=== PATIENT | female | born 1945 | race Caucasian/White ===

== ENCOUNTER 2017-05-17 08:00 | Day surgery (SDC) | payer MEDICARE ==
[2017-05-15 11:54] LABS: BASOPHILS % (AUTO) 0.5 % (0-1); EOSINOPHILS # (AUTO) 0.4 X10'3 (0-0.9); EOSINOPHILS % (AUTO) 6.2 % (0-6); LYMPHOCYTES # (AUTO) 1.5 X10'3 (1.1-4.8); LYMPHOCYTES % (AUTO) 21.8 % (21-51); MEAN CORPUSCULAR HEMOGLOBIN 31.1 PG (27.0-31.0); MEAN CORPUSCULAR HGB CONC 33.4 % (33.0-36.5); MEAN CORPUSCULAR VOLUME 93.1 FL (78-98); MEAN PLATELET VOLUME 7.9 FL (7.4-10.4); MONOCYTES # (AUTO) 0.5 X10'3 (0-0.9); MONOCYTES % (AUTO) 7.8 % (2-12); NEUTROPHILS # (AUTO) 4.4 X10'3 (1.8-7.7); NEUTROPHILS % (AUTO) 63.7 % (42-75); PRE OP HEMATOCRIT 45.1 % (35.0-45.0); PRE OP HEMOGLOBIN 15.1 g/dL (12.0-16.0); PRE OP PLATELET COUNT 263 X10'3 (140-440); RED BLOOD COUNT 4.85 X10'6 (4.20-5.60); RED CELL DISTRIBUTION WIDTH 14.1 % (11.5-14.5)
[2017-05-15 12:17] LABS: ALBUMIN 3.8 G/DL (3.4-5.0); ALKALINE PHOSPHATASE 88 IU/L (46-116); BLOOD UREA NITROGEN 11 MG/DL (7-18); CALCIUM 9.6 MG/DL (8.5-10.1); CHLORIDE 102 MMOL/L (99-107); CREATININE 0.92 MG/DL (0.40-0.90); PRE OP ALT 27 U/L (30-65); PRE OP ANION GAP 6 (8-16); PRE OP AST 25 U/L (10-37); PRE OP BILIRUB, TOTAL 0.5 MG/DL (0.0-1.0); PRE OP GLUCOSE 99 MG/DL (70-104); PRE OP POTASSIUM 3.8 MMOL/L (3.4-5.1); PRE OP SODIUM 141 MMOL/L (135-145); TOTAL PROTEIN 7.5 G/DL (6.4-8.2); eGFR 60 ML/MIN
[2017-05-17] VITALS (7 sets, daily range): BP systolic 136–169; BP diastolic 77–92
[~2017-05-17] VITALS: Ht 172.7 cm; Wt 82.4 kg
[~2017-05-17 08:00] MED LIST: ALBU8HFA PO; ARFO15VI3 NEB; ATR0.5NEB IH; BUDE0.5A11 IH; DOCUMENT DATE & TIME OF BETA-BLOCKER PO ONE; LISI10TA4 PO; METO25TA6 PO; SULF500T9 PO; albuterol 2.5 MG/3 ML nebule NEB PRN; ceFOXitin 2 GM ADDvantage bag 100 ML IV ONE; famotidine 20mg tablet PO ONE; ringers solution, lacted 1,000 ML IV SCH
[2017-05-17] MEDS ORDERED: epiNEPHrine 1 mg/ml inj ONE (11:42)
[2017-05-17] MEDS ORDERED: BUPIVAcaine/PF 2.5 mg/ml (0.25%) 30ml vial ONE (11:42)
[2017-05-17] MEDS ORDERED: ceFAZolin 1000mg inj ONE (11:42)
[2017-05-17] MEDS ORDERED: fentaNYL/PF 50MCG/1 ML 2ML syringe ONE ×2 (12:28→13:19)
[2017-05-17] MEDS ORDERED: propofol inj 20 ML IV ONE (12:36)
[2017-05-17] MEDS ORDERED: LIDOcaine 2% (20mg/ml) 5ml vial ONE (12:36)
[2017-05-17] MEDS ORDERED: sevoflurane 250ml liquid IH ONE (12:53)
[2017-05-17] MEDS ORDERED: rocuronium 10mg/ml inj IV ONE (13:00)
[2017-05-17] MEDS ORDERED: ringers solution, lacted 1,000 ML IV SCH (13:48)
[2017-05-17] MEDS ORDERED: HYDROmorphone 1 mg/ml syringe IV PRN ×2 (13:50)
[2017-05-17] MEDS ORDERED: ondansetron/PF 4mg/2ml inj IV PRN (13:50)
[2017-05-17] MEDS ORDERED: glycopyrrolate 0.2mg/ml inj ONE (13:57)
[2017-05-17] MEDS ORDERED: ondansetron/PF 4mg/2ml inj ONE (13:57)
[2017-05-17] MEDS ORDERED: dexamethasone sod phosphate 4mg/ml inj. ONE (13:57)
[2017-05-17] MEDS ORDERED: meperidine/PF 25mg/ml syringe ONE (14:08)
== END 2017-05-17 14:35 | disposition home or self-care (01) ==
LOC: PAS 08:00
PROVIDERS: ATTEND Surgery
DX: K81.1 Chronic cholecystitis (principal); J44.9 Chronic obstructive pulmonary disease, unspecified; K50.90 Crohn's disease, unspecified, without complications; I10 Essential (primary) hypertension; F32.9 Major depressive disorder, single episode, unspecified; F10.21 Alcohol dependence, in remission; Z98.49 Cataract extraction status, unspecified eye; Z88.6 Allergy status to analgesic agent; Z79.899 Other long term (current) drug therapy; Z90.710 Acquired absence of both cervix and uterus; Z95.810 Presence of automatic (implantable) cardiac defibrillator; Z79.82 Long term (current) use of aspirin
CPT/HCPCS: 36415; 47562; 71046; 80053; 85025; 93005; J0171; J0690; J0694; J1100; J2001; J2175; J2405; J2704; J3010; J3490; J7120; 88304; A7000

== ENCOUNTER 2017-06-28 17:24 | Inpatient (IN) | payer MEDICARE, OTHER ==
[~2017-06-28] VITALS: Ht 175.3 cm; Wt 85.0 kg
[~2017-06-28 17:24] MED LIST changes: -DOCUMENT DATE & TIME OF BETA-BLOCKER PO ONE; -albuterol 2.5 MG/3 ML nebule NEB PRN; -ceFOXitin 2 GM ADDvantage bag 100 ML IV ONE; -famotidine 20mg tablet PO ONE; -ringers solution, lacted 1,000 ML IV SCH
[2017-06-28] MEDS ORDERED: acetaminophen 325mg tablet PO STA (17:31)
[2017-06-28] MEDS ORDERED: normal saline 1000ML IV soln IV ONE (17:35)
[2017-06-28] MEDS ORDERED: ipratropium/albuterol 3ml nebule NEB ONE (17:35)
[2017-06-28] MEDS ORDERED: diltiazem 5mg/ml 5ml inj. IV ONE (17:50)
[2017-06-28 17:58] LABS: BASOPHILS # (AUTO) 0.1 X10'3 (0-0.2); BASOPHILS % (AUTO) 0.3 % (0-1); EOSINOPHILS % (AUTO) 0 % (0-6); HEMATOCRIT 44.5 % (35.0-45.0); HEMOGLOBIN 15.2 g/dl (12.0-16.0); LYMPHOCYTES # (AUTO) 0.8 X10'3 (1.1-4.8); LYMPHOCYTES % (AUTO) 3.5 % (21-51); MEAN CORPUSCULAR HEMOGLOBIN 31.3 PG (27.0-31.0); MEAN CORPUSCULAR HGB CONC 34.2 % (33.0-36.5); MEAN CORPUSCULAR VOLUME 91.5 FL (78-98); MEAN PLATELET VOLUME 7.6 FL (7.4-10.4); MONOCYTES % (AUTO) 4.5 % (2-12); NEUTROPHILS % (AUTO) 91.7 % (42-75); PLATELET COUNT 283 X10'3 (140-440); RED BLOOD COUNT 4.86 X10'6 (4.20-5.60); RED CELL DISTRIBUTION WIDTH 14.3 % (11.5-14.5); WHITE BLOOD COUNT 21.8 X10'3 (4.5-11.0)
[2017-06-28 18:11] LABS: ABG BASE EXCESS 4.6 mmol/L (-2.0-3.0); ABG HCO3 27.8 mmol/L (22.0-26.0); ABG OXYGEN SATURATION 89.3 % (95-98); ABG PCO2 (T) 37.6 mmHg (32.0-45.0); ABG PH (T) 7.488 (7.350-7.450); ABG PO2 (T) 49.6 mmHg (83-108); ALLEN'S TEST Positive; FCOHb 1.1 % (0.5-1.5); FMetHb 0.2 % (0.3-1.12); FO2Hb 88.1 % (94-100); PATIENT TEMPERATURE 37.3; TOTAL HEMOGLOBIN 15.8 G/dl (12.0-16.0)
[2017-06-28 18:15] LABS: ALANINE AMINOTRANSFERASE 21 U/L (12-78); ALBUMIN 3.7 G/DL (3.4-5.0); ALBUMIN/GLOBULIN RATIO 0.9 (1.1-1.5); ALKALINE PHOSPHATASE 92 IU/L (46-116); ANION GAP 8 (8-16); ASPARTATE AMINO TRANSFERASE 14 U/L (10-37); BILIRUBIN,TOTAL 0.8 MG/DL (0.1-1.0); BLOOD UREA NITROGEN 14 MG/DL (7-18); BUN/CREATININE RATIO 12.8 (6.6-38.0); CALCIUM 9.4 MG/DL (8.5-10.1); CHLORIDE 98 MMOL/L (99-107); CREATININE 1.09 MG/DL (0.40-0.90); GLUCOSE 140 MG/DL (70-104); POTASSIUM 3.3 MMOL/L (3.5-5.1); SODIUM 136 MMOL/L (135-145); TOTAL CARBON DIOXIDE 30.2 MMOL/L (24-32); TOTAL PROTEIN 7.7 G/DL (6.4-8.2); eGFR 49 ML/MIN
[2017-06-28] MEDS ORDERED: CefTRIAXone 2gm/NS 100ml IVPB 100 ML IV ONE (18:30)
[2017-06-28] MEDS ORDERED: azithromycin/NS 500mg/250ml 250 ML IV ONE (18:30)
[2017-06-28 21:40] LABS: CLARITY,URINE Clear (Clear); COLOR,URINE Yellow (Yellow); GLUCOSE, URINE Negative (Neg); KETONES,URINE Negative (Neg); LEUKOCYTE ESTERASE ,URINE Trace (Neg); NITRITES, URINE Negative (Neg); OCCULT BLOOD,URINE Negative (Neg); PROTEIN,URINE Negative (Neg); UROBILINOGEN,URINE 0.2 E.U/dL (0.2-1.0)
[2017-06-28 22:03] LABS: UA COLLECTION TYPE CLN CATCH MIDSTREAM
[2017-06-28 22:08] LABS: BACTERIA,URINE FEW /HPF (Neg); MUCUS STRANDS FEW /LPF (Neg); SQUAMOUS EPITHELIAL CELL,UR FEW /LPF (FEW)
[2017-06-28 22:09] LABS: RBC,URINE NONE SEEN /HPF (0-2)
[2017-06-29] MEDS ORDERED: ipratropium/albuterol 3ml nebule ONE (01:33)
[2017-06-29] MEDS ORDERED: ipratropium/albuterol 3ml nebule NEB ONE (01:40)
[2017-06-29] MEDS ORDERED: mag hydrox/Alum hydrox/simeth 30ml oral suspension PO PRN (02:55)
[2017-06-29] MEDS ORDERED: magnesium hydroxide 30ml (MOM) UD suspension PO PRN (02:55)
[2017-06-29] MEDS ORDERED: ondansetron/PF 4mg/2ml inj IV PRN (02:55)
[2017-06-29] MEDS ORDERED: acetaminophen 325mg tablet PO PRN (02:55)
[2017-06-29] MEDS ORDERED: albuterol 2.5 MG/3 ML nebule NEB PRN (03:20)
[2017-06-29] MEDS: methylPREDNISolone sod succ 125mg/2ml vial IV SCH ×3 (04:06→23:44)
[2017-06-29] MEDS ORDERED: azithromycin 250mg tablet PO ONE (07:00)
[2017-06-29] MEDS: ARFORMOTEROL TARTRATE IH SCH ×2 (08:00→20:00)
[2017-06-29] MEDS: lisinopril 10 MG tablet PO SCH (09:01)
[2017-06-29] MEDS: metoprolol tartrate 25mg tablet PO SCH (09:01)
[2017-06-29] MEDS: cefTRIAXone 1g/NS 100ml IVPB 100 ML IV SCH (09:01)
[2017-06-29] MEDS: heparin, porcine 5000 units/ml vial SQ SCH ×2 (09:03→21:38)
[2017-06-29 09:51] LABS: ABG HCO3 29.3 mmol/L (22.0-26.0); ABG OXYGEN SATURATION 95.5 % (95-98); ABG PCO2 (T) 46.7 mmHg (32.0-45.0); ABG PH (T) 7.416 (7.350-7.450); ABG PO2 (T) 72.6 mmHg (83-108); ALLEN'S TEST Positive; FCOHb 1.2 % (0.5-1.5); FLOW 2 L/min; FMetHb 0.2 % (0.3-1.12); FO2Hb 94.2 % (94-100); RESPIRATORY RATE (OBSERVED) 24 b/min; TOTAL HEMOGLOBIN 14.4 G/dl (12.0-16.0)
[2017-06-29] MEDS: budesonide 0.5mg/2ml UD nebule IH SCH ×2 (09:52→20:29)
[2017-06-29] MEDS: ipratropium 0.5 MG/2.5ML nebule IH SCH ×3 (09:53→20:29)
[2017-06-29 17:00] VITALS: BP 177/90
[2017-06-29] MEDS ORDERED: magnesium 2GM in 50ml NS 50 ML IV PRN (17:35)
[2017-06-29] MEDS ORDERED: potassium Cl 20 mEq SR tablet PO PRN (17:35)
[2017-06-29] MEDS ORDERED: potassium Cl 40MEQ/NS 500ml 500 ML IV PRN ×2 (17:35)
[2017-06-29] MEDS ORDERED: magnesium 4gm in 100ml NS 100 ML IV PRN (17:35)
[2017-06-29] MEDS ORDERED: magnesium Cl slow-release 64mg tablet PO PRN (17:35)
[2017-06-29] MEDS: lactobacillus rhamnosus 10,000 MMU CELLS/CAPSULE PO SCH (17:40)
[2017-06-29] MEDS: potassium Cl 20 mEq SR tablet PO PRN ×2 (17:40→22:35)
[2017-06-29 20:00] VITALS: BP 145/79
[2017-06-30] VITALS: BP 123/68
[2017-06-30 05:23] LABS: BASOPHILS % (AUTO) 0 % (0-1); EOSINOPHILS # (AUTO) 0.3 X10'3 (0-0.9); EOSINOPHILS % (AUTO) 2.2 % (0-6); HEMATOCRIT 37.7 % (35.0-45.0); LYMPHOCYTES # (AUTO) 0.7 X10'3 (1.1-4.8); LYMPHOCYTES % (AUTO) 5.2 % (21-51); MEAN CORPUSCULAR HEMOGLOBIN 31.6 PG (27.0-31.0); MEAN CORPUSCULAR HGB CONC 34.4 % (33.0-36.5); MEAN CORPUSCULAR VOLUME 91.9 FL (78-98); MEAN PLATELET VOLUME 7.9 FL (7.4-10.4); MONOCYTES # (AUTO) 0.2 X10'3 (0-0.9); MONOCYTES % (AUTO) 1.2 % (2-12); NEUTROPHILS # (AUTO) 12.6 X10'3 (1.8-7.7); NEUTROPHILS % (AUTO) 91.4 % (42-75); PLATELET COUNT 228 X10'3 (140-440); RED CELL DISTRIBUTION WIDTH 14.4 % (11.5-14.5); WHITE BLOOD COUNT 13.8 X10'3 (4.5-11.0)
[2017-06-30 05:58] LABS: ALANINE AMINOTRANSFERASE 21 U/L (12-78); ALBUMIN/GLOBULIN RATIO 0.8 (1.1-1.5); ALKALINE PHOSPHATASE 74 IU/L (46-116); ANION GAP 5 (8-16); ASPARTATE AMINO TRANSFERASE 15 U/L (10-37); BILIRUBIN,TOTAL 0.3 MG/DL (0.1-1.0); BLOOD UREA NITROGEN 13 MG/DL (7-18); BUN/CREATININE RATIO 13.7 (6.6-38.0); CALCIUM 8.7 MG/DL (8.5-10.1); CHLORIDE 103 MMOL/L (99-107); CREATININE 0.95 MG/DL (0.40-0.90); GLUCOSE 134 MG/DL (70-104); MAGNESIUM 1.8 MG/DL (1.5-2.4); POTASSIUM 4.3 MMOL/L (3.5-5.1); SODIUM 140 MMOL/L (135-145); TOTAL CARBON DIOXIDE 32.1 MMOL/L (24-32); TOTAL PROTEIN 6.6 G/DL (6.4-8.2); eGFR 58 ML/MIN
[2017-06-30 08:00] VITALS: BP 156/86
[2017-06-30] MEDS: cefTRIAXone 1g/NS 100ml IVPB 100 ML IV SCH (08:00)
[2017-06-30] MEDS: ARFORMOTEROL TARTRATE IH SCH (08:00)
[2017-06-30] MEDS: methylPREDNISolone sod succ 125mg/2ml vial IV SCH (08:00)
[2017-06-30] MEDS: metoprolol tartrate 25mg tablet PO SCH (08:44)
[2017-06-30] MEDS: heparin, porcine 5000 units/ml vial SQ SCH (08:44)
[2017-06-30] MEDS: lactobacillus rhamnosus 10,000 MMU CELLS/CAPSULE PO SCH (08:45)
[2017-06-30] MEDS: lisinopril 10 MG tablet PO SCH (08:45)
[2017-06-30] MEDS: budesonide 0.5mg/2ml UD nebule IH SCH (08:45)
[2017-06-30] MEDS: ipratropium 0.5 MG/2.5ML nebule IH SCH ×2 (08:45→14:38)
[2017-06-30] MEDS ORDERED: PRED10TA23 PO (09:54)
[2017-06-30] MEDS ORDERED: AZIT500T PO (09:55)
[2017-06-30 11:52] VITALS: BP 171/90
== END 2017-06-30 15:34 | disposition home or self-care (01) | DRG 189 ==
LOC: ER 17:24 → ED HOLD 06-29 02:53 → SUR 3N 06-29 15:30
PROVIDERS: ADMIT Internal Medicine; ATTEND Internal Medicine
DX: J96.01 Acute respiratory failure with hypoxia (principal); J44.1 Chronic obstructive pulmonary disease with (acute) exacerbation; Z99.81 Dependence on supplemental oxygen; E87.6 Hypokalemia; I10 Essential (primary) hypertension; K58.9 Irritable bowel syndrome, unspecified; F17.210 Nicotine dependence, cigarettes, uncomplicated; Z95.0 Presence of cardiac pacemaker; Z88.5 Allergy status to narcotic agent; Z79.899 Other long term (current) drug therapy
CPT/HCPCS: 36415; 36600; 71045; 80053; 81001; 82803; 83605; 83735; 85018; 85025; 87040; 87070; 87088; 87502; 87503; 93005; 94640; 94760; 96365; 96368; 97116; 99285; J0456; J0696; J1644; J2930; J3490; J7030; J7626

== ENCOUNTER 2018-03-13 10:02 | Inpatient (IN) | payer MEDICARE, OTHER ==
[~2018-03-13] VITALS: Ht 175.3 cm; Wt 82.3 kg
[~2018-03-13 10:02] MED LIST changes: -SULF500T9 PO
[2018-03-13] MEDS ORDERED: normal saline 1000ML IV soln IV ONE (10:20)
[2018-03-13] MEDS ORDERED: albuterol 2.5 MG/3 ML nebule CONTNEB PRN (10:20)
[2018-03-13] MEDS ORDERED: methylPREDNISolone sod succ 125mg/2ml vial IV ONE (10:20)
[2018-03-13] MEDS ORDERED: levoFLOXACIN-Levaquin 750MG/D5 150 ML IV ONE (10:20)
[2018-03-13 10:56] LABS: BASOPHILS % (AUTO) 0 % (0-1); EOSINOPHILS # (AUTO) 0.2 X10'3 (0-0.9); EOSINOPHILS % (AUTO) 1.5 % (0-6); HEMATOCRIT 43.1 % (35.0-45.0); HEMOGLOBIN 14.2 g/dl (12.0-16.0); LYMPHOCYTES # (AUTO) 0.7 X10'3 (1.1-4.8); LYMPHOCYTES % (AUTO) 4.8 % (21-51); MEAN CORPUSCULAR HEMOGLOBIN 31.2 PG (27.0-31.0); MEAN CORPUSCULAR HGB CONC 33.1 % (33.0-36.5); MEAN CORPUSCULAR VOLUME 94.3 FL (78-98); MEAN PLATELET VOLUME 7.8 FL (7.4-10.4); MONOCYTES # (AUTO) 0.2 X10'3 (0-0.9); MONOCYTES % (AUTO) 1.7 % (2-12); NEUTROPHILS # (AUTO) 12.7 X10'3 (1.8-7.7); PLATELET COUNT 253 X10'3 (140-440); RED BLOOD COUNT 4.56 X10'6 (4.20-5.60); RED CELL DISTRIBUTION WIDTH 14.7 % (11.5-14.5); WHITE BLOOD COUNT 13.8 X10'3 (4.5-11.0)
[2018-03-13 11:10] LABS: ALANINE AMINOTRANSFERASE 45 U/L (12-78); ALBUMIN 3.8 G/DL (3.4-5.0); ALBUMIN/GLOBULIN RATIO 1.2 (1.1-1.5); ALKALINE PHOSPHATASE 82 IU/L (46-116); ANION GAP 11 (8-16); ASPARTATE AMINO TRANSFERASE 35 U/L (10-37); BILIRUBIN,TOTAL 0.4 MG/DL (0.1-1.0); BLOOD UREA NITROGEN 8 MG/DL (7-18); BUN/CREATININE RATIO 8.2 (6.6-38.0); CALCIUM 8.9 MG/DL (8.5-10.1); CHLORIDE 103 MMOL/L (99-107); CREATININE 0.97 MG/DL (0.40-0.90); GLUCOSE 114 MG/DL (70-104); MAGNESIUM 1.4 MG/DL (1.5-2.4); SODIUM 143 MMOL/L (135-145); TOTAL CARBON DIOXIDE 29.4 MMOL/L (24-32); eGFR 56 ML/MIN
[2018-03-13 11:15] LABS: PARTIAL THROMBOPLASTIN TIME 22 SECONDS (22-32); PROTHROMBIN TIME 9.9 SECONDS (9.0-12.0)
[2018-03-13 11:16] LABS: POTASSIUM 2.9 MMOL/L (3.5-5.1)
[2018-03-13] MEDS ORDERED: potassium Cl 20 mEq SR tablet PO ONE (11:25)
[2018-03-13] MEDS ORDERED: albuterol 2.5 MG/3 ML nebule NEB PRN (13:35)
[2018-03-13] MEDS ORDERED: potassium Cl 40MEQ/NS 500ml 500 ML IV PRN ×2 (13:35)
[2018-03-13] MEDS ORDERED: magnesium 1gm/100ml D5W IVPB 100 ML IV PRN (13:35)
[2018-03-13] MEDS ORDERED: mag hydrox/Alum hydrox/simeth 30ml oral suspension PO PRN (13:35)
[2018-03-13] MEDS ORDERED: magnesium hydroxide 30ml (MOM) UD suspension PO PRN (13:35)
[2018-03-13] MEDS ORDERED: magnesium Cl slow-release 64mg tablet PO PRN (13:35)
[2018-03-13] MEDS ORDERED: magnesium 4gm in 100ml NS 100 ML IV PRN (13:35)
[2018-03-13] MEDS ORDERED: ondansetron/PF 4mg/2ml inj IV PRN (13:35)
[2018-03-13] MEDS ORDERED: potassium Cl 20 mEq SR tablet PO PRN ×2 (13:35)
[2018-03-13] MEDS ORDERED: acetaminophen 325mg tablet PO PRN (13:35)
[2018-03-13] MEDS ORDERED: PRED20TA PO (14:16)
[2018-03-13 15:00] VITALS: BP 150/83
[2018-03-13] MEDS: ipratropium/albuterol 3ml nebule NEB SCH ×3 (15:49→23:27)
[2018-03-13] MEDS ORDERED: ibuprofen tablet 400 MG TABLET PO PRN (16:45)
[2018-03-13] MEDS ORDERED: aminophylline 250mg/10ml inj. IV PRN (18:50)
[2018-03-13] MEDS ORDERED: aspirin 81mg tab.chew PO ONE (18:50)
[2018-03-13] MEDS ORDERED: metoprolol tartrate 1mg/ml inj IV PRN (18:50)
[2018-03-13] MEDS ORDERED: nitroGLYCERIN 0.4mg SUBLingual tab SL PRN (18:50)
[2018-03-13] MEDS ORDERED: regadenoson 0.4mg/5ml syringe IV PRN (18:50)
[2018-03-13 19:00] VITALS: BP 144/79
[2018-03-13] MEDS: metoprolol tartrate 12.5mg (1/2 tablet) PO SCH (19:37)
[2018-03-13] MEDS: methylPREDNISolone sod succ/PF 40mg inj. IV SCH (19:38)
[2018-03-13] MEDS: BUDESONIDE 0.25 MG/2 ML AMPUL.NEB IH SCH (19:47)
[2018-03-13 23:00] VITALS: BP 139/79
[2018-03-14] VITALS (18 sets, daily range): BP systolic 107–149; BP diastolic 51–77
[2018-03-14] MEDS: ipratropium/albuterol 3ml nebule NEB SCH ×6 (03:36→23:02)
[2018-03-14 05:05] LABS: BASOPHILS % (AUTO) 0 % (0-1); EOSINOPHILS % (AUTO) 0 % (0-6); HEMATOCRIT 36.1 % (35.0-45.0); HEMOGLOBIN 12.3 g/dl (12.0-16.0); LYMPHOCYTES # (AUTO) 0.7 X10'3 (1.1-4.8); LYMPHOCYTES % (AUTO) 7.7 % (21-51); MEAN CORPUSCULAR HEMOGLOBIN 31.8 PG (27.0-31.0); MEAN CORPUSCULAR HGB CONC 34.1 % (33.0-36.5); MEAN CORPUSCULAR VOLUME 93.2 FL (78-98); MEAN PLATELET VOLUME 7.6 FL (7.4-10.4); MONOCYTES # (AUTO) 0.4 X10'3 (0-0.9); MONOCYTES % (AUTO) 4.6 % (2-12); NEUTROPHILS # (AUTO) 7.5 X10'3 (1.8-7.7); NEUTROPHILS % (AUTO) 87.7 % (42-75); PLATELET COUNT 224 X10'3 (140-440); RED BLOOD COUNT 3.87 X10'6 (4.20-5.60); RED CELL DISTRIBUTION WIDTH 14.6 % (11.5-14.5); WHITE BLOOD COUNT 8.6 X10'3 (4.5-11.0)
[2018-03-14 05:21] LABS: ALBUMIN 3.1 G/DL (3.4-5.0); ANION GAP 7 (8-16); BLOOD UREA NITROGEN 9 MG/DL (7-18); BUN/CREATININE RATIO 10.7 (6.6-38.0); CALCIUM 9.2 MG/DL (8.5-10.1); CHLORIDE 106 MMOL/L (99-107); CREATININE 0.84 MG/DL (0.40-0.90); GLUCOSE 119 MG/DL (70-104); MAGNESIUM 1.6 MG/DL (1.5-2.4); POTASSIUM 3.9 MMOL/L (3.5-5.1); SODIUM 142 MMOL/L (135-145); TOTAL CARBON DIOXIDE 28.8 MMOL/L (24-32); TROPONIN I 0.35 NG/ML (0.0-0.05); eGFR 67 ML/MIN
[2018-03-14] MEDS: BUDESONIDE 0.25 MG/2 ML AMPUL.NEB IH SCH ×2 (07:05→19:07)
[2018-03-14] MEDS: K and/or MAG REPLACEMENT MC SCH (08:00)
[2018-03-14] MEDS ORDERED: metoprolol tartrate 25mg tablet PO SCH (08:00)
[2018-03-14] MEDS: enoxaparin 40mg/0.4ml syringe SQ SCH (09:09)
[2018-03-14] MEDS: aspirin 81mg tablet.DR PO SCH (09:10)
[2018-03-14] MEDS: lisinopril 10 MG tablet PO SCH (09:16)
[2018-03-14] MEDS: levoFLOXACIN-Levaquin 500mg/D5 100 ML IV SCH (09:16)
[2018-03-14] MEDS: methylPREDNISolone sod succ/PF 40mg inj. IV SCH ×2 (09:16→19:42)
[2018-03-14] MEDS: metoprolol tartrate 12.5mg (1/2 tablet) PO SCH ×2 (10:49→19:45)
[2018-03-14] MEDS ORDERED: regadenoson 0.4mg/5ml syringe IV ONE (12:33)
[2018-03-14] MEDS ORDERED: aminophylline inj. 10 ML IV ONE (12:33)
[2018-03-14] MEDS ORDERED: furosemide 40mg/4ml inj IV ONE (14:35)
[2018-03-14 16:50] LABS: TROPONIN I 0.31 NG/ML (0.0-0.05)
[2018-03-14] MEDS: lactobacillus rhamnosus 10,000 MMU CELLS/CAPSULE PO SCH (19:43)
[2018-03-14] MEDS ORDERED: etomidate 2mg/ml inj. ONE (20:00)
[2018-03-14] MEDS ORDERED: non-formulary drug (Arformoterol Tartrate (Brovana) 1 VIAL) NEB SCH (20:00)
[2018-03-15] VITALS (19 sets, daily range): BP systolic 73–240; BP diastolic 54–146
[2018-03-15] MEDS: ipratropium/albuterol 3ml nebule NEB SCH ×6 (02:46→23:05)
[2018-03-15] MEDS ORDERED: ibuprofen 200mg tablet PO PRN (03:09)
[2018-03-15 05:47] LABS: BASOPHILS % (AUTO) 0 % (0-1); EOSINOPHILS # (AUTO) 0.1 X10'3 (0-0.9); EOSINOPHILS % (AUTO) 1.2 % (0-6); HEMATOCRIT 39.2 % (35.0-45.0); HEMOGLOBIN 13.2 g/dl (12.0-16.0); LYMPHOCYTES # (AUTO) 0.6 X10'3 (1.1-4.8); LYMPHOCYTES % (AUTO) 7.6 % (21-51); MEAN CORPUSCULAR HEMOGLOBIN 31.6 PG (27.0-31.0); MEAN CORPUSCULAR HGB CONC 33.7 % (33.0-36.5); MEAN CORPUSCULAR VOLUME 93.8 FL (78-98); MEAN PLATELET VOLUME 7.7 FL (7.4-10.4); MONOCYTES # (AUTO) 0.4 X10'3 (0-0.9); MONOCYTES % (AUTO) 4.6 % (2-12); NEUTROPHILS # (AUTO) 7.1 X10'3 (1.8-7.7); NEUTROPHILS % (AUTO) 86.6 % (42-75); PLATELET COUNT 245 X10'3 (140-440); RED BLOOD COUNT 4.18 X10'6 (4.20-5.60); RED CELL DISTRIBUTION WIDTH 14.5 % (11.5-14.5); WHITE BLOOD COUNT 8.2 X10'3 (4.5-11.0)
[2018-03-15 05:50] LABS: ALBUMIN 3.4 G/DL (3.4-5.0); ANION GAP 7 (8-16); BLOOD UREA NITROGEN 15 MG/DL (7-18); CHLORIDE 102 MMOL/L (99-107); CREATININE 0.94 MG/DL (0.40-0.90); GLUCOSE 115 MG/DL (70-104); MAGNESIUM 1.6 MG/DL (1.5-2.4); POTASSIUM 3.6 MMOL/L (3.5-5.1); SODIUM 142 MMOL/L (135-145); TOTAL CARBON DIOXIDE 33.3 MMOL/L (24-32); eGFR 59 ML/MIN
[2018-03-15] MEDS: BUDESONIDE 0.25 MG/2 ML AMPUL.NEB IH SCH ×2 (07:28→19:22)
[2018-03-15] MEDS: K and/or MAG REPLACEMENT MC SCH (08:00)
[2018-03-15] MEDS: levoFLOXACIN-Levaquin 500mg/D5 100 ML IV SCH (08:07)
[2018-03-15] MEDS: furosemide 40mg/4ml inj IV SCH (08:07)
[2018-03-15] MEDS: methylPREDNISolone sod succ/PF 40mg inj. IV SCH ×2 (08:08→20:54)
[2018-03-15] MEDS: aspirin 81mg tablet.DR PO SCH (08:09)
[2018-03-15] MEDS: metoprolol tartrate 12.5mg (1/2 tablet) PO SCH ×2 (08:09→22:21)
[2018-03-15] MEDS: lactobacillus rhamnosus 10,000 MMU CELLS/CAPSULE PO SCH ×2 (08:09→20:54)
[2018-03-15] MEDS: lisinopril 10 MG tablet PO SCH (08:10)
[2018-03-15] MEDS: enoxaparin 40mg/0.4ml syringe SQ SCH (08:11)
[2018-03-15 10:51] LABS: ABG HCO3 38.7 mmol/L (22.0-26.0); ABG OXYGEN SATURATION 91.8 % (95-98); ABG PCO2 (T) 124.2 mmHg (32.0-45.0); ABG PH (T) 7.112 (7.350-7.450); ABG PO2 (T) 81.2 mmHg (83-108); FCOHb 0.3 % (0.5-1.5); FLOW 50 L/min; FMetHb 0.3 % (0.3-1.12); FO2Hb 91.2 % (94-100); TOTAL HEMOGLOBIN 15.9 G/dl (12.0-16.0)
[2018-03-15] MEDS ORDERED: midazolam 2 mg/2 ml injection IV PRN (11:00)
[2018-03-15] MEDS ORDERED: morphine 4 MG/ML inj SYRINge IV PRN ×2 (11:00→12:35)
[2018-03-15] MEDS ORDERED: MIDAZolam 5mg/ml 2ml vial ONE (11:03)
[2018-03-15 11:06] LABS: PROTHROMBIN TIME 10.2 SECONDS (9.0-12.0)
[2018-03-15 11:08] LABS: BASOPHILS % (AUTO) 0.2 % (0-1); EOSINOPHILS # (AUTO) 0.2 X10'3 (0-0.9); EOSINOPHILS % (AUTO) 1.3 % (0-6); HEMOGLOBIN 15.3 g/dl (12.0-16.0); LYMPHOCYTES # (AUTO) 3.2 X10'3 (1.1-4.8); LYMPHOCYTES % (AUTO) 18.4 % (21-51); MEAN CORPUSCULAR HEMOGLOBIN 31.6 PG (27.0-31.0); MEAN CORPUSCULAR HGB CONC 33.3 % (33.0-36.5); MEAN CORPUSCULAR VOLUME 94.9 FL (78-98); MEAN PLATELET VOLUME 8.1 FL (7.4-10.4); MONOCYTES # (AUTO) 1.3 X10'3 (0-0.9); MONOCYTES % (AUTO) 7.2 % (2-12); NEUTROPHILS # (AUTO) 12.7 X10'3 (1.8-7.7); NEUTROPHILS % (AUTO) 72.9 % (42-75); PLATELET COUNT 361 X10'3 (140-440); RED BLOOD COUNT 4.84 X10'6 (4.20-5.60); RED CELL DISTRIBUTION WIDTH 14.9 % (11.5-14.5); WHITE BLOOD COUNT 17.4 X10'3 (4.5-11.0)
[2018-03-15 11:11] LABS: ALANINE AMINOTRANSFERASE 94 U/L (12-78); ALBUMIN 4.2 G/DL (3.4-5.0); ALBUMIN/GLOBULIN RATIO 1.2 (1.1-1.5); ALKALINE PHOSPHATASE 81 IU/L (46-116); ANION GAP 9 (8-16); ASPARTATE AMINO TRANSFERASE 94 U/L (10-37); BILIRUBIN,TOTAL 0.5 MG/DL (0.1-1.0); BLOOD UREA NITROGEN 16 MG/DL (7-18); BUN/CREATININE RATIO 13.3 (6.6-38.0); CALCIUM 9.6 MG/DL (8.5-10.1); CHLORIDE 99 MMOL/L (99-107); GLUCOSE 197 MG/DL (70-104); SODIUM 143 MMOL/L (135-145); TOTAL CARBON DIOXIDE 35.3 MMOL/L (24-32); TOTAL PROTEIN 7.6 G/DL (6.4-8.2); TROPONIN I 0.23 NG/ML (0.0-0.05); eGFR 44 ML/MIN
[2018-03-15] MEDS: midazolam 100mg in NS 100ml 100 ML IV PRN (11:17)
[2018-03-15] MEDS: FENTANYL-0.9 % NACL/PF 100 ML IV PRN ×2 (11:18→17:47)
[2018-03-15 11:45] LABS: OXYGEN SATURATION (MIXED VEN) 87.5 % (60-80); PO2 MIXED VENOUS (TEMP COR) 60.2 mmHg (35-46)
[2018-03-15] MEDS ORDERED: propofol 1000mg/100ml bottle 100 ML IV PRN (11:47)
[2018-03-15] MEDS ORDERED: NORepinephrine 8mg/ 250ml NS 250 ML IV PRN ×2 (11:50→12:01)
[2018-03-15] MEDS ORDERED: NORepinephrine 8mg/ 250ml NS 250 ML IV ONE (11:51)
[2018-03-15 11:55] LABS: ABG BASE EXCESS 1.5 mmol/L (-2.0-3.0); ABG HCO3 30.2 mmol/L (22.0-26.0); ABG OXYGEN SATURATION 98.7 % (95-98); ABG PCO2 (T) 66.6 mmHg (32.0-45.0); ABG PH (T) 7.275 (7.350-7.450); ABG PO2 (T) 160.6 mmHg (83-108); ALLEN'S TEST Positive; FCOHb 0.3 % (0.5-1.5); FMetHb 0.2 % (0.3-1.12); FO2Hb 98.2 % (94-100); MINUTE VOLUME 6 L/min; PEEP 5 cm H2O; RESPIRATORY RATE 16 b/min; RESPIRATORY RATE (OBSERVED) 20 b/min; TIDAL VOLUME 400 mL; TOTAL HEMOGLOBIN 14.6 G/dl (12.0-16.0)
[2018-03-15 11:55] LABS: BASOPHILS % (AUTO) 0 % (0-1); EOSINOPHILS # (AUTO) 0.1 X10'3 (0-0.9); HEMOGLOBIN 13.9 g/dl (12.0-16.0); LYMPHOCYTES # (AUTO) 0.4 X10'3 (1.1-4.8); LYMPHOCYTES % (AUTO) 3.7 % (21-51); MEAN CORPUSCULAR HEMOGLOBIN 31.1 PG (27.0-31.0); MEAN CORPUSCULAR VOLUME 94.4 FL (78-98); MEAN PLATELET VOLUME 7.7 FL (7.4-10.4); MONOCYTES # (AUTO) 0.3 X10'3 (0-0.9); MONOCYTES % (AUTO) 3.2 % (2-12); NEUTROPHILS % (AUTO) 92.1 % (42-75); PLATELET COUNT 308 X10'3 (140-440); RED BLOOD COUNT 4.45 X10'6 (4.20-5.60); RED CELL DISTRIBUTION WIDTH 14.8 % (11.5-14.5); WHITE BLOOD COUNT 10.9 X10'3 (4.5-11.0)
[2018-03-15 12:10] LABS: ALANINE AMINOTRANSFERASE 101 U/L (12-78); ALBUMIN 3.6 G/DL (3.4-5.0); ALBUMIN/GLOBULIN RATIO 1.2 (1.1-1.5); ALKALINE PHOSPHATASE 74 IU/L (46-116); ANION GAP 11 (8-16); ASPARTATE AMINO TRANSFERASE 113 U/L (10-37); BILIRUBIN,TOTAL 0.5 MG/DL (0.1-1.0); BLOOD UREA NITROGEN 18 MG/DL (7-18); BUN/CREATININE RATIO 14.9 (6.6-38.0); CALCIUM 8.8 MG/DL (8.5-10.1); CHLORIDE 100 MMOL/L (99-107); CREATININE 1.21 MG/DL (0.40-0.90); GLUCOSE 133 MG/DL (70-104); MAGNESIUM 1.6 MG/DL (1.5-2.4); PHOSPHORUS 6.3 MG/DL (2.3-4.5); POTASSIUM 3.4 MMOL/L (3.5-5.1); SODIUM 145 MMOL/L (135-145); TOTAL CARBON DIOXIDE 33.6 MMOL/L (24-32); TOTAL PROTEIN 6.6 G/DL (6.4-8.2); eGFR 44 ML/MIN
[2018-03-15] MEDS ORDERED: albuterol 2.5 MG/3 ML nebule NEB PRN ×2 (12:25→12:35)
[2018-03-15] MEDS ORDERED: ondansetron/PF 4mg/2ml inj IV PRN (12:35)
[2018-03-15] MEDS ORDERED: acetaminophen 325mg tablet PO PRN ×2 (12:35)
[2018-03-15] MEDS ORDERED: morphine 2 MG/ML inj. syringe IV PRN (12:35)
[2018-03-15] MEDS ORDERED: potassium Cl 20 mEq SR tablet PO PRN ×2 (12:35)
[2018-03-15] MEDS ORDERED: metoclopramide 5 mg/ml inj IV PRN (12:35)
[2018-03-15] MEDS: K, MAG and/or Phos replacement - Verify level? MC SCH (12:35)
[2018-03-15] MEDS ORDERED: magnesium hydroxide 30ml (MOM) UD suspension PO PRN (12:35)
[2018-03-15 22:08] LABS: CLARITY,URINE CLEAR (Clear); COLOR,URINE YELLOW (Yellow); GLUCOSE, URINE NEGATIVE (Neg); KETONES,URINE NEGATIVE (Neg); LEUKOCYTE ESTERASE ,URINE NEGATIVE (Neg); NITRITES, URINE NEGATIVE (Neg); OCCULT BLOOD,URINE TRACE-INTACT (Neg); PROTEIN,URINE NEGATIVE (Neg); UROBILINOGEN,URINE 0.2 E.U/dL (0.2-1.0)
[2018-03-15 22:10] LABS: UA COLLECTION TYPE FOLEY CATH
[2018-03-15 22:17] LABS: BACTERIA,URINE NONE SEEN /HPF (Neg); RBC,URINE NONE SEEN /HPF (0-2); SQUAMOUS EPITHELIAL CELL,UR FEW /LPF (FEW); WBC,URINE NONE SEEN /HPF (0-4)
[2018-03-15 22:18] LABS: TRANSITIONAL EPI CELLS,URINE FEW /HPF
[2018-03-15 22:36] LABS: D-DIMER 1.14 MG/L FEU (0-0.50)
[2018-03-16] VITALS (25 sets, daily range): BP systolic 96–150; BP diastolic 59–88
[2018-03-16 02:18] LABS: BASOPHILS % (AUTO) 0.1 % (0-1); EOSINOPHILS % (AUTO) 0 % (0-6); HEMATOCRIT 38.1 % (35.0-45.0); HEMOGLOBIN 13.2 g/dl (12.0-16.0); LYMPHOCYTES # (AUTO) 0.3 X10'3 (1.1-4.8); MEAN CORPUSCULAR HEMOGLOBIN 32.2 PG (27.0-31.0); MEAN CORPUSCULAR HGB CONC 34.6 % (33.0-36.5); MEAN CORPUSCULAR VOLUME 93.2 FL (78-98); MEAN PLATELET VOLUME 7.9 FL (7.4-10.4); MONOCYTES # (AUTO) 0.3 X10'3 (0-0.9); MONOCYTES % (AUTO) 3.5 % (2-12); NEUTROPHILS % (AUTO) 93.4 % (42-75); PLATELET COUNT 218 X10'3 (140-440); RED BLOOD COUNT 4.09 X10'6 (4.20-5.60); WHITE BLOOD COUNT 9.6 X10'3 (4.5-11.0)
[2018-03-16 02:28] LABS: ALANINE AMINOTRANSFERASE 91 U/L (12-78); ALBUMIN 3.4 G/DL (3.4-5.0); ALBUMIN/GLOBULIN RATIO 1.4 (1.1-1.5); ALKALINE PHOSPHATASE 61 IU/L (46-116); ANION GAP 5 (8-16); ASPARTATE AMINO TRANSFERASE 54 U/L (10-37); BILIRUBIN,TOTAL 0.8 MG/DL (0.1-1.0); BLOOD UREA NITROGEN 18 MG/DL (7-18); BUN/CREATININE RATIO 18.4 (6.6-38.0); CALCIUM 8.5 MG/DL (8.5-10.1); CHLORIDE 103 MMOL/L (99-107); CREATININE 0.98 MG/DL (0.40-0.90); GLUCOSE 116 MG/DL (70-104); MAGNESIUM 1.6 MG/DL (1.5-2.4); PHOSPHORUS 3.4 MG/DL (2.3-4.5); POTASSIUM 3.6 MMOL/L (3.5-5.1); SODIUM 141 MMOL/L (135-145); TOTAL CARBON DIOXIDE 33.3 MMOL/L (24-32); TOTAL PROTEIN 5.9 G/DL (6.4-8.2); eGFR 56 ML/MIN
[2018-03-16 02:34] LABS: INR 1.1 INR; PARTIAL THROMBOPLASTIN TIME 22 SECONDS (22-32); PROTHROMBIN TIME 10.8 SECONDS (9.0-12.0)
[2018-03-16] MEDS: ipratropium/albuterol 3ml nebule NEB SCH ×6 (03:08→22:52)
[2018-03-16 03:21] LABS: ABG BASE EXCESS 5.7 mmol/L (-2.0-3.0); ABG HCO3 29.2 mmol/L (22.0-26.0); ABG OXYGEN SATURATION 96.2 % (95-98); ABG PCO2 (T) 38.1 mmHg (32.0-45.0); ABG PH (T) 7.502 (7.350-7.450); ABG PO2 (T) 75.5 mmHg (83-108); ALLEN'S TEST Positive; FCOHb 0.3 % (0.5-1.5); FMetHb 0.2 % (0.3-1.12); FO2Hb 95.7 % (94-100); MINUTE VOLUME 8 L/min; PATIENT TEMPERATURE 36.5; PEEP 5 cm H2O; RESPIRATORY RATE 20 b/min; RESPIRATORY RATE (OBSERVED) 20 b/min; TIDAL VOLUME 400 mL
[2018-03-16] MEDS: midazolam 100mg in NS 100ml 100 ML IV PRN (03:58)
[2018-03-16] MEDS: FENTANYL-0.9 % NACL/PF 100 ML IV PRN (03:59)
[2018-03-16] MEDS: BUDESONIDE 0.25 MG/2 ML AMPUL.NEB IH SCH ×2 (07:20→18:54)
[2018-03-16] MEDS: methylPREDNISolone sod succ/PF 40mg inj. IV SCH ×2 (07:49→19:57)
[2018-03-16] MEDS: furosemide 40mg/4ml inj IV SCH (07:49)
[2018-03-16] MEDS: pantoprazole 40 MG vial IV SCH (07:50)
[2018-03-16] MEDS: metoprolol tartrate 12.5mg (1/2 tablet) PO SCH ×2 (07:59→19:55)
[2018-03-16] MEDS: levoFLOXACIN-Levaquin 500mg/D5 100 ML IV SCH (07:59)
[2018-03-16] MEDS: lactobacillus rhamnosus 10,000 MMU CELLS/CAPSULE PO SCH ×2 (07:59→19:56)
[2018-03-16] MEDS: aspirin 81mg tablet.DR PO SCH (08:00)
[2018-03-16] MEDS: lisinopril 10 MG tablet PO SCH (08:00)
[2018-03-16] MEDS: K, MAG and/or Phos replacement - Verify level? MC SCH (08:00)
[2018-03-16] MEDS: enoxaparin 40mg/0.4ml syringe SUBCUT SCH (08:01)
[2018-03-16] MEDS ORDERED: metoclopramide 5 mg/ml inj IV PRN (13:00)
[2018-03-16] MEDS ORDERED: metoprolol tartrate 1mg/ml inj IV PRN (13:00)
[2018-03-16] MEDS ORDERED: nitroGLYCERIN 0.4mg SUBLingual tab SL PRN (13:00)
[2018-03-16] MEDS ORDERED: aminophylline 250mg/10ml inj. IV PRN (13:00)
[2018-03-16] MEDS ORDERED: regadenoson 0.4mg/5ml syringe IV ONE (13:00)
[2018-03-16 13:20] LABS: ABG BASE EXCESS 7.6 mmol/L (-2.0-3.0); ABG HCO3 32.6 mmol/L (22.0-26.0); ABG OXYGEN SATURATION 95.3 % (95-98); ABG PCO2 (T) 46.7 mmHg (32.0-45.0); ABG PH (T) 7.462 (7.350-7.450); ABG PO2 (T) 71.7 mmHg (83-108); ALLEN'S TEST Positive; FCOHb 0.3 % (0.5-1.5); FLOW 3 L/min; FMetHb 0.3 % (0.3-1.12); FO2Hb 94.7 % (94-100); TOTAL HEMOGLOBIN 15.1 G/dl (12.0-16.0)
[2018-03-16] MEDS ORDERED: mineral oil/petrolatum ophthal oint EACHEYE SCH (14:00)
[2018-03-16] MEDS: metoclopramide 5 mg/ml inj IV SCH (20:01)
[2018-03-16] MEDS ORDERED: diphenhydrAMINE 25mg capsule PO PRN (20:30)
[2018-03-17] VITALS (24 sets, daily range): BP systolic 104–152; BP diastolic 57–87
[2018-03-17 00:36] LABS: BASOPHILS % (AUTO) 0.2 % (0-1); EOSINOPHILS # (AUTO) 0.1 X10'3 (0-0.9); EOSINOPHILS % (AUTO) 0.9 % (0-6); HEMATOCRIT 40.4 % (35.0-45.0); HEMOGLOBIN 13.4 g/dl (12.0-16.0); LYMPHOCYTES # (AUTO) 0.4 X10'3 (1.1-4.8); LYMPHOCYTES % (AUTO) 3.6 % (21-51); MEAN CORPUSCULAR HEMOGLOBIN 31.5 PG (27.0-31.0); MEAN CORPUSCULAR HGB CONC 33.2 % (33.0-36.5); MEAN CORPUSCULAR VOLUME 94.8 FL (78-98); MEAN PLATELET VOLUME 7.6 FL (7.4-10.4); MONOCYTES # (AUTO) 0.4 X10'3 (0-0.9); MONOCYTES % (AUTO) 3.5 % (2-12); NEUTROPHILS # (AUTO) 9.7 X10'3 (1.8-7.7); NEUTROPHILS % (AUTO) 91.8 % (42-75); PLATELET COUNT 240 X10'3 (140-440); RED BLOOD COUNT 4.26 X10'6 (4.20-5.60); RED CELL DISTRIBUTION WIDTH 15.6 % (11.5-14.5); WHITE BLOOD COUNT 10.5 X10'3 (4.5-11.0)
[2018-03-17 00:50] LABS: ALANINE AMINOTRANSFERASE 105 U/L (12-78); ALBUMIN 3.4 G/DL (3.4-5.0); ALBUMIN/GLOBULIN RATIO 1.2 (1.1-1.5); ALKALINE PHOSPHATASE 74 IU/L (46-116); ANION GAP 6 (8-16); ASPARTATE AMINO TRANSFERASE 59 U/L (10-37); BILIRUBIN,TOTAL 0.7 MG/DL (0.1-1.0); BLOOD UREA NITROGEN 27 MG/DL (7-18); BUN/CREATININE RATIO 18.8 (6.6-38.0); CALCIUM 8.8 MG/DL (8.5-10.1); CHLORIDE 100 MMOL/L (99-107); CREATININE 1.44 MG/DL (0.40-0.90); GLUCOSE 145 MG/DL (70-104); MAGNESIUM 1.7 MG/DL (1.5-2.4); PARTIAL THROMBOPLASTIN TIME 23 SECONDS (22-32); PHOSPHORUS 4.5 MG/DL (2.3-4.5); POTASSIUM 3.5 MMOL/L (3.5-5.1); PROTHROMBIN TIME 10.5 SECONDS (9.0-12.0); SODIUM 140 MMOL/L (135-145); TOTAL CARBON DIOXIDE 33.8 MMOL/L (24-32); TOTAL PROTEIN 6.3 G/DL (6.4-8.2); eGFR 36 ML/MIN
[2018-03-17] MEDS: ipratropium/albuterol 3ml nebule NEB SCH ×6 (02:43→23:49)
[2018-03-17] MEDS: metoclopramide 5 mg/ml inj IV SCH ×4 (03:31→20:03)
[2018-03-17] MEDS: BUDESONIDE 0.25 MG/2 ML AMPUL.NEB IH SCH ×2 (07:08→19:44)
[2018-03-17] MEDS: lactobacillus rhamnosus 10,000 MMU CELLS/CAPSULE PO SCH ×2 (07:31→20:00)
[2018-03-17] MEDS: metoprolol tartrate 12.5mg (1/2 tablet) PO SCH ×2 (07:31→20:01)
[2018-03-17] MEDS: levoFLOXACIN-Levaquin 500mg/D5 100 ML IV SCH (07:31)
[2018-03-17] MEDS: furosemide 40mg/4ml inj IV SCH (07:32)
[2018-03-17] MEDS: enoxaparin 40mg/0.4ml syringe SUBCUT SCH (07:32)
[2018-03-17] MEDS: pantoprazole 40 MG vial IV SCH (07:32)
[2018-03-17] MEDS: methylPREDNISolone sod succ/PF 40mg inj. IV SCH ×2 (07:32→20:04)
[2018-03-17] MEDS: K, MAG and/or Phos replacement - Verify level? MC SCH (07:33)
[2018-03-17] MEDS: lisinopril 10 MG tablet PO SCH (08:23)
[2018-03-17] MEDS: aspirin 81mg tablet.DR PO SCH (08:23)
[2018-03-17] MEDS: sodium chloride 0.45% 1,000 ML IV SCH (09:17)
[2018-03-17] MEDS ORDERED: polyethylene glycol 3350 17gm powd pack PO PRN (12:35)
[2018-03-18] VITALS (18 sets, daily range): BP systolic 87–142; BP diastolic 49–82
[2018-03-18] MEDS: sodium chloride 0.45% 1,000 ML IV SCH (00:59)
[2018-03-18] MEDS: metoclopramide 5 mg/ml inj IV SCH ×4 (02:43→21:06)
[2018-03-18 03:07] LABS: BASOPHILS % (AUTO) 0 % (0-1); EOSINOPHILS # (AUTO) 0.1 X10'3 (0-0.9); EOSINOPHILS % (AUTO) 1.1 % (0-6); HEMATOCRIT 39.3 % (35.0-45.0); LYMPHOCYTES # (AUTO) 0.4 X10'3 (1.1-4.8); LYMPHOCYTES % (AUTO) 4.5 % (21-51); MEAN CORPUSCULAR HEMOGLOBIN 31.6 PG (27.0-31.0); MEAN CORPUSCULAR HGB CONC 33.2 % (33.0-36.5); MEAN CORPUSCULAR VOLUME 95.2 FL (78-98); MEAN PLATELET VOLUME 7.9 FL (7.4-10.4); MONOCYTES # (AUTO) 0.3 X10'3 (0-0.9); MONOCYTES % (AUTO) 3.4 % (2-12); NEUTROPHILS # (AUTO) 8.5 X10'3 (1.8-7.7); PLATELET COUNT 226 X10'3 (140-440); RED BLOOD COUNT 4.13 X10'6 (4.20-5.60); RED CELL DISTRIBUTION WIDTH 14.9 % (11.5-14.5); WHITE BLOOD COUNT 9.3 X10'3 (4.5-11.0)
[2018-03-18 03:15] LABS: ALANINE AMINOTRANSFERASE 85 U/L (12-78); ALBUMIN 3.2 G/DL (3.4-5.0); ALBUMIN/GLOBULIN RATIO 1.2 (1.1-1.5); ALKALINE PHOSPHATASE 68 IU/L (46-116); ANION GAP 5 (8-16); ASPARTATE AMINO TRANSFERASE 35 U/L (10-37); BILIRUBIN,TOTAL 0.5 MG/DL (0.1-1.0); BLOOD UREA NITROGEN 22 MG/DL (7-18); BUN/CREATININE RATIO 19.5 (6.6-38.0); CALCIUM 8.5 MG/DL (8.5-10.1); CHLORIDE 100 MMOL/L (99-107); CREATININE 1.13 MG/DL (0.40-0.90); GLUCOSE 143 MG/DL (70-104); MAGNESIUM 1.8 MG/DL (1.5-2.4); PHOSPHORUS 3.5 MG/DL (2.3-4.5); POTASSIUM 3.6 MMOL/L (3.5-5.1); PROTHROMBIN TIME 10.5 SECONDS (9.0-12.0); SODIUM 138 MMOL/L (135-145); TOTAL CARBON DIOXIDE 32.9 MMOL/L (24-32); TOTAL PROTEIN 5.9 G/DL (6.4-8.2); eGFR 47 ML/MIN
[2018-03-18 03:16] LABS: PARTIAL THROMBOPLASTIN TIME 23 SECONDS (22-32)
[2018-03-18] MEDS: ipratropium/albuterol 3ml nebule NEB SCH ×6 (03:34→23:49)
[2018-03-18] MEDS: methylPREDNISolone sod succ/PF 40mg inj. IV SCH ×2 (07:46→21:06)
[2018-03-18] MEDS: furosemide 40mg/4ml inj IV SCH (07:46)
[2018-03-18] MEDS: aspirin 81mg tablet.DR PO SCH (07:47)
[2018-03-18] MEDS: metoprolol tartrate 12.5mg (1/2 tablet) PO SCH ×2 (07:47→21:07)
[2018-03-18] MEDS: lactobacillus rhamnosus 10,000 MMU CELLS/CAPSULE PO SCH ×2 (07:48→21:06)
[2018-03-18] MEDS: pantoprazole 40mg Tablet.DR PO SCH (07:48)
[2018-03-18] MEDS: lisinopril 10 MG tablet PO SCH (07:48)
[2018-03-18] MEDS: enoxaparin 40mg/0.4ml syringe SUBCUT SCH (07:50)
[2018-03-18] MEDS: K, MAG and/or Phos replacement - Verify level? MC SCH (08:00)
[2018-03-18] MEDS: BUDESONIDE 0.25 MG/2 ML AMPUL.NEB IH SCH ×2 (08:15→19:49)
[2018-03-18] MEDS ORDERED: benzocaine/menthol oral lozeng 1 EACH BOX MM PRN (11:00)
[2018-03-19] MEDS: metoclopramide 5 mg/ml inj IV SCH ×3 (02:47→14:00)
[2018-03-19 03:00] VITALS: BP 123/60
[2018-03-19] MEDS: ipratropium/albuterol 3ml nebule NEB SCH ×3 (03:17→11:57)
[2018-03-19 05:31] LABS: PROTHROMBIN TIME 10.4 SECONDS (9.0-12.0)
[2018-03-19 05:32] LABS: PARTIAL THROMBOPLASTIN TIME 22 SECONDS (22-32)
[2018-03-19 05:39] LABS: ALANINE AMINOTRANSFERASE 74 U/L (12-78); ALBUMIN 3.2 G/DL (3.4-5.0); ALBUMIN/GLOBULIN RATIO 1.2 (1.1-1.5); ALKALINE PHOSPHATASE 74 IU/L (46-116); ANION GAP 7 (8-16); ASPARTATE AMINO TRANSFERASE 24 U/L (10-37); BILIRUBIN,TOTAL 0.5 MG/DL (0.1-1.0); BLOOD UREA NITROGEN 20 MG/DL (7-18); BUN/CREATININE RATIO 19.6 (6.6-38.0); CALCIUM 8.7 MG/DL (8.5-10.1); CHLORIDE 99 MMOL/L (99-107); CREATININE 1.02 MG/DL (0.40-0.90); GLUCOSE 129 MG/DL (70-104); PHOSPHORUS 3.7 MG/DL (2.3-4.5); POTASSIUM 3.8 MMOL/L (3.5-5.1); SODIUM 139 MMOL/L (135-145); TOTAL CARBON DIOXIDE 32.8 MMOL/L (24-32); TOTAL PROTEIN 5.9 G/DL (6.4-8.2); eGFR 53 ML/MIN
[2018-03-19 06:00] VITALS: BP 136/71
[2018-03-19] MEDS: metoprolol tartrate 12.5mg (1/2 tablet) PO SCH (07:26)
[2018-03-19] MEDS: lactobacillus rhamnosus 10,000 MMU CELLS/CAPSULE PO SCH (07:26)
[2018-03-19] MEDS: aspirin 81mg tablet.DR PO SCH (07:26)
[2018-03-19] MEDS: pantoprazole 40mg Tablet.DR PO SCH (07:26)
[2018-03-19] MEDS: methylPREDNISolone sod succ/PF 40mg inj. IV SCH (07:26)
[2018-03-19] MEDS: lisinopril 10 MG tablet PO SCH (07:26)
[2018-03-19] MEDS: enoxaparin 40mg/0.4ml syringe SUBCUT SCH (07:27)
[2018-03-19] MEDS: furosemide 40mg/4ml inj IV SCH (07:27)
[2018-03-19] MEDS ORDERED: levoFLOXACIN-Levaquin 500mg/D5 100 ML IV SCH (08:00)
[2018-03-19] MEDS: BUDESONIDE 0.25 MG/2 ML AMPUL.NEB IH SCH (09:01)
[2018-03-19 11:00] VITALS: BP 126/71
[2018-03-19] MEDS ORDERED: levoFLOXACIN 500mg tablet PO SCH (11:00)
[2018-03-19] MEDS ORDERED: PRED20TA PO (12:23)
[2018-03-19] MEDS ORDERED: METO-292 PO (12:23)
[2018-03-19] MEDS ORDERED: PANT40TA4 PO (12:23)
[2018-03-20] MEDS ORDERED: methylnaltrexone br 12mg/0.6ml inj***SubQ only SQ SCH (08:00)
[2018-03-22 10:47] LABS: ALLEN'S TEST Positive
== END 2018-03-19 15:07 | disposition home or self-care (01) | DRG 208 ==
LOC: ER 10:03 → ED HOLD 13:35 → PCU 3S 15:29 → SUR 3N 03-15 03:05 → ICU 2S 03-15 10:51 → PCU 3S 03-18 16:40 → UNDODISIN 03-19 13:30
PROVIDERS: ADMIT Hospitalist; ATTEND Internal Medicine Critical Care Medicine
PROC: 4A02XM4 Measurement of Cardiac Total Activity, External Approach (ICD-10-PCS; principal; 2018-03-14)
PROC: 3E033HZ Introduction of Radioactive Substance into Peripheral Vein, Percutaneous Approach (ICD-10-PCS; 2018-03-14)
PROC: 5A1945Z Respiratory Ventilation, 24-96 Consecutive Hours (ICD-10-PCS; 2018-03-15)
PROC: 0BH17EZ Insertion of Endotracheal Airway into Trachea, Via Natural or Artificial Opening (ICD-10-PCS; 2018-03-15)
PROC: 02HV33Z Insertion of Infusion Device into Superior Vena Cava, Percutaneous Approach (ICD-10-PCS; 2018-03-15)
PROC: 03HY32Z Insertion of Monitoring Device into Upper Artery, Percutaneous Approach (ICD-10-PCS; 2018-03-15)
DX: J96.21 Acute and chronic respiratory failure with hypoxia (principal); J44.1 Chronic obstructive pulmonary disease with (acute) exacerbation; E87.2 Acidosis; N17.9 Acute kidney failure, unspecified; I50.22 Chronic systolic (congestive) heart failure; J96.22 Acute and chronic respiratory failure with hypercapnia; I11.0 Hypertensive heart disease with heart failure; R74.8 Abnormal levels of other serum enzymes; I49.5 Sick sinus syndrome; Z95.810 Presence of automatic (implantable) cardiac defibrillator; Z88.6 Allergy status to analgesic agent; Z79.899 Other long term (current) drug therapy; Z87.01 Personal history of pneumonia (recurrent)
CPT/HCPCS: 36415; 36600; 71045; 78452; 80048; 80053; 81001; 82140; 82150; 82803; 82810; 82948; 83605; 83735; 83880; 84100; 84145; 84439; 84443; 84484; 85018; 85025; 85379; 85610; 85730; 87040; 87070; 93005; 93017; 93306; 94002; 94003; 94640; 94760; 96365; 96375; 97110; 97116; 97161; 97530; 99285; A9500; C9113; G0378; J0280; J1650; J1940; J1956; J2250; J2765; J2920; J2930; J3480; J3490; Q0163

== ENCOUNTER 2018-04-18 13:20 | Outpatient (CLI) | payer MEDICARE, OTHER ==
[~2018-04-18 13:20] MED LIST changes: -ATR0.5NEB IH; +METO-292 PO; +PANT40TA4 PO; +PRED20TA PO
== END 2018-04-18 23:59 | disposition home or self-care (01) ==
LOC: RAD 13:20
PROVIDERS: ATTEND Physician Assistant
DX: R13.14 Dysphagia, pharyngoesophageal phase (principal); K21.0 Gastro-esophageal reflux disease with esophagitis; I10 Essential (primary) hypertension; J44.9 Chronic obstructive pulmonary disease, unspecified; Z79.899 Other long term (current) drug therapy
CPT/HCPCS: 74230

== ENCOUNTER 2019-04-29 14:09 | Inpatient (IN) | payer MEDICARE, OTHER ==
[~2019-04-29] VITALS: Ht 175.3 cm; Wt 84.1 kg
[2019-04-29 15:05] LABS: BASOPHILS % (AUTO) 0.3 % (0-1); EOSINOPHILS % (AUTO) 0.1 % (0-6); HEMATOCRIT 38.3 % (35.0-45.0); HEMOGLOBIN 13.3 g/dl (12.0-16.0); LYMPHOCYTES # (AUTO) 0.5 X10'3 (1.1-4.8); LYMPHOCYTES % (AUTO) 2.9 % (21-51); MEAN CORPUSCULAR HEMOGLOBIN 32.7 PG (27.0-31.0); MEAN CORPUSCULAR HGB CONC 34.7 g/dL (33.0-36.5); MEAN PLATELET VOLUME 8.3 FL (7.4-10.4); MONOCYTES % (AUTO) 5.7 % (2-12); NEUTROPHILS # (AUTO) 15.7 X10'3 (1.8-7.7); PLATELET COUNT 261 X10'3 (140-440); RED BLOOD COUNT 4.07 X10'6 (4.20-5.60); RED CELL DISTRIBUTION WIDTH 13.7 % (11.5-14.5); WHITE BLOOD COUNT 17.3 X10'3 (4.5-11.0)
[2019-04-29 15:15] LABS: PARTIAL THROMBOPLASTIN TIME 25 SECONDS (22-32)
[2019-04-29 15:17] LABS: ALANINE AMINOTRANSFERASE 16 U/L (12-78); ALBUMIN 3.5 G/DL (3.4-5.0); ALKALINE PHOSPHATASE 81 IU/L (46-116); ANION GAP 7 (8-16); ASPARTATE AMINO TRANSFERASE 13 U/L (10-37); BILIRUBIN,TOTAL 0.5 MG/DL (0.1-1.0); BLOOD UREA NITROGEN 9 MG/DL (7-18); BUN/CREATININE RATIO 8.9 (6.6-38.0); CALCIUM 8.9 MG/DL (8.5-10.1); CHLORIDE 101 MMOL/L (99-107); CREATININE 1.01 MG/DL (0.40-0.90); GLUCOSE 109 MG/DL (70-104); MAGNESIUM 1.2 MG/DL (1.5-2.4); PHOSPHORUS 1.8 MG/DL (2.3-4.5); SODIUM 139 MMOL/L (135-145); TOTAL CARBON DIOXIDE 30.9 MMOL/L (24-32); TOTAL PROTEIN 7.1 G/DL (6.4-8.2); eGFR 54 ML/MIN
[2019-04-29 15:25] LABS: POTASSIUM 2.5 MMOL/L (3.5-5.1)
[2019-04-29] MEDS ORDERED: potassium 10mEq/100ml NS w/LIDOcaine (10mg/bag) IV ONE (15:40)
[2019-04-29] MEDS ORDERED: magnesium 2GM in 50ml NS 50 ML IV ONE (15:40)
[2019-04-29] MEDS ORDERED: potassium Cl 10 mEq/100mL bag IV ONE (15:50)
[2019-04-29] MEDS ORDERED: CefTRIAXone 2gm/D5W 50ml 50 ML IV ONE (16:00)
[2019-04-29] MEDS ORDERED: methylPREDNISolone sod succ 125mg/2ml vial IV ONE (16:00)
[2019-04-29] MEDS ORDERED: azithromycin/NS 500mg/250ml 250 ML IV ONE (16:00)
[2019-04-29] MEDS ORDERED: ipratropium/albuterol 3ml nebule NEB ONE (16:00)
[2019-04-29] MEDS ORDERED: ALBU0.63 NEB (16:30)
[2019-04-29] MEDS ORDERED: SERT25TA5 PO (16:32)
[2019-04-29] MEDS ORDERED: PRED20TA PO (16:33)
[2019-04-29] MEDS ORDERED: METO-411 PO (16:36)
[2019-04-29 16:50] LABS: ABG BASE EXCESS 4.9 mmol/L (-2.0-3.0); ABG HCO3 27.8 mmol/L (22.0-26.0); ABG OXYGEN SATURATION 89.1 % (95-98); ABG PCO2 (T) 35.6 mmHg (35.0-45.0); ABG PH (T) 7.511 (7.350-7.450); ABG PO2 (T) 46.1 mmHg (83-108); ALLEN'S TEST Positive; FCOHb 0.7 % (0.5-1.5); FO2Hb 88.5 % (94-100); RESPIRATORY RATE (OBSERVED) 26 b/min; TOTAL HEMOGLOBIN 13.7 G/dl (12.0-16.0)
[2019-04-29 17:19] LABS: CLARITY,URINE SLIGHTLY CLOUDY (Clear); COLOR,URINE YELLOW (Yellow); GLUCOSE, URINE NEGATIVE (Neg); KETONES,URINE NEGATIVE (Neg); LEUKOCYTE ESTERASE ,URINE SMALL (Neg); NITRITES, URINE NEGATIVE (Neg); OCCULT BLOOD,URINE MODERATE (Neg); PROTEIN,URINE TRACE mg/dl (Neg); UROBILINOGEN,URINE 0.2 E.U/dL (0.2-1.0)
[2019-04-29 17:20] LABS: UA COLLECTION TYPE CLN CATCH MIDSTREAM
[2019-04-29] MEDS ORDERED: HYDROcodone/acetaminophen 5mg/325mg tablet PO PRN (17:20)
[2019-04-29] MEDS ORDERED: ondansetron/PF 4mg/2ml inj IV PRN (17:20)
[2019-04-29] MEDS ORDERED: magnesium Cl slow-release 64mg tablet PO PRN (17:20)
[2019-04-29] MEDS ORDERED: potassium Cl 20 mEq SR tablet PO PRN ×2 (17:20)
[2019-04-29] MEDS ORDERED: acetaminophen 650mg rectal suppository RC PRN (17:20)
[2019-04-29] MEDS ORDERED: mag hydrox/Alum hydrox/simeth 30ml oral suspension PO PRN (17:20)
[2019-04-29] MEDS ORDERED: magnesium 4gm in 100ml NS 100 ML IV PRN (17:20)
[2019-04-29] MEDS ORDERED: diphenhydrAMINE 25mg capsule PO PRN (17:20)
[2019-04-29] MEDS ORDERED: magnesium hydroxide 30ml (MOM) UD suspension PO PRN (17:20)
[2019-04-29] MEDS ORDERED: HYDROcodone/acetaminophen 10/325mg tab PO PRN (17:20)
[2019-04-29] MEDS ORDERED: diphenhydrAMINE 50 mg/ml inj IV PRN (17:20)
[2019-04-29] MEDS ORDERED: potassium CL 10mEq/100ml bag 100 ML IV PRN (17:20)
[2019-04-29] MEDS ORDERED: acetaminophen 325mg tablet PO PRN ×2 (17:20)
[2019-04-29] MEDS ORDERED: magnesium 2GM in 50ml NS 50 ML IV PRN (17:20)
[2019-04-29] MEDS ORDERED: bisacodyl 10mg suppository rectal RC PRN (17:20)
[2019-04-29 17:25] LABS: MUCUS STRANDS MANY /LPF (Neg); SQUAMOUS EPITHELIAL CELL,UR FEW /LPF (FEW)
[2019-04-29 17:26] LABS: HYALINE CASTS 0-3 /LPF (NEGATIVE)
[2019-04-29 17:27] LABS: FINE GRANULAR CAST 0-3 /LPF (NEGATIVE); TRANSITIONAL EPI CELLS,URINE FEW /HPF
[2019-04-29 17:30] LABS: WBC,URINE 20-30 /HPF (0-4)
[2019-04-29 17:32] LABS: BACTERIA,URINE FEW /HPF (Neg); RBC,URINE 0-2 /HPF (0-2)
[2019-04-29] MEDS ORDERED: iohexol 350MG/ML 100ml bottle IV ONE (17:35)
[2019-04-29 18:04] LABS: HEMOGLOBIN A1C 5.1 % (4.5-6.2)
[2019-04-29] MEDS: normal saline 1000ml 1,000 ML IV SCH (18:31)
[2019-04-29] MEDS: potassium CL 10mEq/100ml bag 100 ML IV PRN ×2 (18:39→20:07)
[2019-04-29] MEDS: ipratropium/albuterol 3ml nebule NEB SCH ×2 (19:15→23:01)
[2019-04-29] MEDS: levoFLOXACIN-Levaquin 750MG/D5 150 ML IV SCH (19:42)
[2019-04-29] MEDS: K and/or MAG REPLACEMENT MC SCH (20:00)
--- NOTE | 2019-04-29 20:00 | NUR ---
PTS K IS 2.5 - SHE HAS BEEN GIVEN 40MEQ PO AND WILL RECEIVE 40IV FOR A TOTAL OF 80MEQ
[2019-04-29] MEDS: heparin, porcine 5000 units/ml vial SQ SCH (20:28)
[2019-04-29] MEDS: methylPREDNISolone sod succ 125mg/2ml vial IV SCH (20:28)
[2019-04-29] MEDS ORDERED: temazepam 15mg capsule PO PRN (21:00)
[2019-04-29] MEDS ORDERED: pneumococcal 23-VAL P-sac vacc 25 mcg/0.5ml vial IMVAC ONE (22:35)
[2019-04-29 22:37] VITALS: BP 138/82
--- NOTE | 2019-04-30 00:46 | NUR ---
Arrived to [facility] at 2110 from ER on a gurney. Patient is able to get up and walk to the bed. A&Ox4 with stable vital signs. Patient was oriented to the room, placed on tele box 52, screened for MRSA, darted per admission assessment, and a 2 RN skin check was done. All patient questions were answered and she is now resting comfortably. ER finished Potassium replacements for K 2.4 with PO K+ and IV K+, and finished Magnesium replacement IV for Mg 1.2 K+ labs were rechecked per protocol and is now 3.4 I will start potassium replacements accordingly to instructions in eMAR.
--- NOTE | 2019-04-30 01:00 | NUR ---
Patient in room PCU 3018. I have received report from Tammi ROSS in ER and had the opportunity to ask questions and assume patient care.
[2019-04-30] MEDS: methylPREDNISolone sod succ 125mg/2ml vial IV SCH ×3 (01:11→14:09)
[2019-04-30 02:58] LABS: BASOPHILS % (AUTO) 0.1 % (0-1); EOSINOPHILS % (AUTO) 0 % (0-6); HEMATOCRIT 35.8 % (35.0-45.0); HEMOGLOBIN 12.4 g/dl (12.0-16.0); LYMPHOCYTES # (AUTO) 0.2 X10'3 (1.1-4.8); LYMPHOCYTES % (AUTO) 1.9 % (21-51); MEAN CORPUSCULAR HEMOGLOBIN 32.6 PG (27.0-31.0); MEAN CORPUSCULAR HGB CONC 34.5 g/dL (33.0-36.5); MEAN CORPUSCULAR VOLUME 94.4 FL (78-98); MONOCYTES # (AUTO) 0.1 X10'3 (0-0.9); MONOCYTES % (AUTO) 0.7 % (2-12); NEUTROPHILS # (AUTO) 12.6 X10'3 (1.8-7.7); NEUTROPHILS % (AUTO) 97.3 % (42-75); PLATELET COUNT 233 X10'3 (140-440); RED CELL DISTRIBUTION WIDTH 13.8 % (11.5-14.5); WHITE BLOOD COUNT 12.9 X10'3 (4.5-11.0)
[2019-04-30 03:03] VITALS: BP 127/70
[2019-04-30] MEDS: ipratropium/albuterol 3ml nebule NEB SCH ×3 (03:03→11:56)
[2019-04-30 03:13] LABS: ALANINE AMINOTRANSFERASE 10 U/L (12-78); ALBUMIN 2.8 G/DL (3.4-5.0); ALBUMIN/GLOBULIN RATIO 0.8 (1.1-1.5); ALKALINE PHOSPHATASE 68 IU/L (46-116); ANION GAP 8 (8-16); ASPARTATE AMINO TRANSFERASE 10 U/L (10-37); BILIRUBIN,TOTAL 0.3 MG/DL (0.1-1.0); BLOOD UREA NITROGEN 9 MG/DL (7-18); BUN/CREATININE RATIO 10.7 (6.6-38.0); CALCIUM 8.3 MG/DL (8.5-10.1); CHLORIDE 105 MMOL/L (99-107); CREATININE 0.84 MG/DL (0.40-0.90); GLUCOSE 151 MG/DL (70-104); POTASSIUM 3.6 MMOL/L (3.5-5.1); SODIUM 142 MMOL/L (135-145); TOTAL CARBON DIOXIDE 28.8 MMOL/L (24-32); TOTAL PROTEIN 6.4 G/DL (6.4-8.2); eGFR 66 ML/MIN
[2019-04-30 03:16] LABS: CHOL/HDL RATIO 2.3 (0.00-4.99); CHOLESTEROL 133 MG/DL (0-200); HDL CHOLESTEROL 58 MG/DL (35-60); LDL CHOLESTEROL 59 MG/DL (50-100); MAGNESIUM 1.9 MG/DL (1.5-2.4); PHOSPHORUS 2.3 MG/DL (2.3-4.5); TRIGLYCERIDES 62 MG/DL (20-135)
[2019-04-30 06:00] VITALS: BP 130/88
--- NOTE | 2019-04-30 06:33 | NUR ---
Problems reprioritized. Patient report given, questions answered & plan of care reviewed with Fidelina Veras RN.
[2019-04-30] MEDS: normal saline 1000ml 1,000 ML IV SCH (06:37)
[2019-04-30] MEDS: K and/or MAG REPLACEMENT MC SCH (08:00)
[2019-04-30] MEDS ORDERED: lisinopril 10 MG tablet PO SCH (08:00)
[2019-04-30] MEDS ORDERED: sertraline 25mg tablet PO SCH (08:00)
[2019-04-30] MEDS ORDERED: metoprolol succinate 25mg (24-HOUR) SR. Tablet PO SCH (08:00)
[2019-04-30] MEDS: levoFLOXACIN-Levaquin 750MG/D5 150 ML IV SCH ×2 (09:36→09:49)
[2019-04-30] MEDS: heparin, porcine 5000 units/ml vial SQ SCH (09:39)
[2019-04-30 11:00] VITALS: BP 132/72
[2019-04-30] MEDS ORDERED: MELA3TAB64 PO (11:46)
[2019-04-30] MEDS ORDERED: LEVO750T46 PO (11:46)
[2019-04-30] MEDS ORDERED: PRED10TA23 PO (11:54)
[2019-04-30] MEDS ORDERED: MAGN400C PO (11:57)
[2019-04-30] MEDS ORDERED: POTA10TA36 PO (11:57)
--- NOTE | 2019-04-30 14:15 | NUR ---
Phoned Prednisone prescription to [facility] [address] in [place] per pt request.
--- NOTE | 2019-04-30 14:36 | NUR ---
Malnutrition consult: Pt admit w/ SOB PO 75% avg heart healthy meals meeting needs. Pt has mild edema, skin intact, no significant weakness, and no significant wt loss hx from prior admits. Pt does not meet minimum malnutrition criteria at this time. Addendum: 04/30/19 at [address] Amended: Links added.
--- NOTE | 2019-04-30 15:13 | NUR ---
Patient was discharged home at 1451 with friends. Patient reviewed discharge packet before signing, RX were faxed and called in to [facility] on [address]. PIV was removed and telemetry monitoring was d/c'd. All belongings were sent with Silver, who was wheeled down by staff and left via private vehicle.
[2019-04-30] MEDS ORDERED: Melatonin 3mg tablet PO SCH (21:00)
== END 2019-04-30 14:51 | disposition home health service (06) | DRG 871 ==
LOC: ER 14:10 → ED HOLD 17:17 → PCU 3S 21:15
PROVIDERS: ADMIT Family Medicine; ATTEND Family Medicine
PROC: 3E0234Z Introduction of Serum, Toxoid and Vaccine into Muscle, Percutaneous Approach (ICD-10-PCS; principal; 2019-04-29)
PROC: B32T1ZZ Computerized Tomography (CT Scan) of Left Pulmonary Artery using Low Osmolar Contrast (ICD-10-PCS; 2019-04-29)
PROC: B3201ZZ Computerized Tomography (CT Scan) of Thoracic Aorta using Low Osmolar Contrast (ICD-10-PCS; 2019-04-29)
PROC: B32S1ZZ Computerized Tomography (CT Scan) of Right Pulmonary Artery using Low Osmolar Contrast (ICD-10-PCS; 2019-04-29)
DX: A41.9 Sepsis, unspecified organism (principal); J18.9 Pneumonia, unspecified organism; J96.21 Acute and chronic respiratory failure with hypoxia; J44.0 Chronic obstructive pulmonary disease with (acute) lower respiratory infection; J44.1 Chronic obstructive pulmonary disease with (acute) exacerbation; E87.3 Alkalosis; K50.90 Crohn's disease, unspecified, without complications; N39.0 Urinary tract infection, site not specified; E83.42 Hypomagnesemia; E87.6 Hypokalemia; F32.9 Major depressive disorder, single episode, unspecified; I49.5 Sick sinus syndrome; Z60.2 Problems related to living alone; I11.0 Hypertensive heart disease with heart failure; I50.9 Heart failure, unspecified; Z66 Do not resuscitate; Z79.899 Other long term (current) drug therapy; Z82.49 Family history of ischemic heart disease and other diseases of the circulatory system; Z83.3 Family history of diabetes mellitus; Z90.710 Acquired absence of both cervix and uterus; Z95.810 Presence of automatic (implantable) cardiac defibrillator; Z99.81 Dependence on supplemental oxygen; Z23 Encounter for immunization; Z88.5 Allergy status to narcotic agent
CPT/HCPCS: 36415; 36600; 71045; 71275; 80053; 80061; 81001; 82803; 83036; 83605; 83735; 83880; 84100; 84132; 84145; 84484; 85018; 85025; 85610; 85730; 87040; 87070; 87081; 87088; 87502; 87503; 93005; 93306; 94640; 94760; 96365; 96368; 96375; 97116; 97161; 97530; 99285; G0378; J0456; J0696; J1644; J1956; J2930; J3475; J3480; J7030; Q9967